=== PATIENT | female | born 1955 | race Caucasian/White ===

== ENCOUNTER → 2021-08-15 | Day surgery (SDC) | payer BC ==
[2021-08-10 14:54] VITALS: BMI 30.8
[2021-08-15 11:28] VITALS: BP 158/106; PULSE 74; TEMP 97.3
== END | disposition home or self-care (01) ==
LOC: FASUSAT 11:03
PROVIDERS: ATTEND Orthopaedic Surgery Orthopaedic Surgery of the Spine
PROC: 0QBQ0ZZ Excision of Right Toe Phalanx, Open Approach (ICD-10-PCS; principal; 2021-08-15)
DX: Z53.8 Procedure and treatment not carried out for other reasons (principal); M25.774 Osteophyte, right foot